=== PATIENT | male | born 2000 | race African-American/Black ===

== ENCOUNTER 2022-05-26 13:15 | Emergency (ER) | payer OTHER ==
[2022-05-26] MEDS ORDERED: IBUPROFEN 400 MG TABLET (FP) PO ONE ×2 (13:27→13:55)
[2022-05-26] MEDS ORDERED: DIPHTH,PERTUSS(ACELL),TET 0.5 ML DISP.SYRIN IM ONE ×2 (13:32→13:56)
[2022-05-26] MEDS ORDERED: LIDOCAINE HCL 1%, 10 MG/ML (50 mL VIAL) SQ ONE (13:40)
[2022-05-26 13:41] VITALS: BP 147/94; PULSE 88; RESP 18; TEMP 98.2; BMI 38.0
[2022-05-26] MEDS ORDERED: LIDOCAINE HCL 1%, 10 MG/ML (20ML VIAL) ONE (13:43)
== END 2022-05-26 15:35 | disposition home or self-care (01) ==
LOC: FER 13:15
PROC: 0HQFXZZ Repair Right Hand Skin, External Approach (ICD-10-PCS; principal; 2022-05-26)
PROC: 3E0234Z Introduction of Serum, Toxoid and Vaccine into Muscle, Percutaneous Approach (ICD-10-PCS; 2022-05-26)
DX: S61.011A Laceration without foreign body of right thumb without damage to nail, initial encounter (principal)
CPT/HCPCS: 73110-TC-LT-FY; 73110-TC-RT-FY; 73130-TC-LT-FY; 73130-TC-RT-FY; 90715; 99284-25